=== PATIENT | female | born 1985 | race Two or more races ===

== ENCOUNTER 2017-11-09 18:27 | Inpatient (IN) | payer OTHER ==
[~2017-11-09] VITALS: Ht 157.5 cm; Wt 83.5 kg
--- NOTE | 2017-11-09 18:35 | NUR ---
aaox3, came to er c/o epigastric pain, nausea vomiting and diarrhea x 2 days. RR is even and unlabored with nad noted. skin is warm and dry. Awaiting md for eval.
[2017-11-09 18:56] LABS: APPEARANCE,URINE Clear (CLEAR); BILIRUBIN,URINE Negative (NEGATIVE); BLOOD, URINE Negative Ery/uL (NEGATIVE); COLOR,URINE Yellow (YELLOW); KETONES,URINE Negative (NEGATIVE); LEUKOCYTE ESTERASE ,URINE Negative (NEGATIVE); NITRITE, URINE Negative (NEGATIVE); PH,URINE 7.5 (5.0-8.0); PROTEIN,URINE Negative (NEGATIVE); UGLUCOSE Negative (NEGATIVE); UROBILINOGEN,URINE 0.2 EU/dL (0.2)
[2017-11-09] MEDS ORDERED: ONDANSETRON HCL/PF 4 MG/2 ML VIAL IVP ONE (19:00)
[2017-11-09] MEDS ORDERED: IV NS 0.9% 1,000 ML BAG IV ONE (19:00)
[2017-11-09] MEDS ORDERED: MORPHINE SULFATE INJ 2 MG/ML DISP.SYRIN IV ONE (19:00)
[2017-11-09 19:07] LABS: BASOPHILS # (AUTO) 0.2 /CMM (0.0-0.2); BASOPHILS % (AUTO) 1.5 % (0.0-2.0); EOSINOPHILS % (AUTO) 0.2 % (0.0-6.0); HEMATOCRIT 42 % (33-45); HEMOGLOBIN 14.7 g/dL (11.5-14.8); LYMPHOCYTES # (AUTO) 1.1 /CMM (0.8-4.8); LYMPHOCYTES % (AUTO) 6.7 % (20.0-44.0); MEAN CORPUSCULAR HGB CONC 35 g/dl (31.0-36.0); MEAN CORPUSCULAR VOLUME 92 fL (82-100); MONOCYTES # (AUTO) 0.6 /CMM (0.1-1.30); MONOCYTES % (AUTO) 3.7 % (2.0-12.0); NEUTROPHILS # (AUTO) 14.7 /CMM (1.8-8.9); NEUTROPHILS % (AUTO) 87.9 % (43.0-81.0); PLATELET COUNT (AUTO) 318 /CMM (150-450); RDW COEFFICIENT OF VARIATION 12.1 (11.5-15.0); WHITE BLOOD COUNT (AUTO) 16.6 K/uL (4.3-11.0)
[2017-11-09] MEDS ORDERED: ONDANSETRON HCL/PF 4 MG/2 ML VIAL ONE (19:09)
[2017-11-09] MEDS ORDERED: MORPHINE SULFATE INJ 4 MG/ML DISP.SYRIN ONE (19:10)
--- NOTE | 2017-11-09 19:10 | NUR ---
REPORT GIVEN TO BK MARRUFO FOR REYNA.
--- NOTE | 2017-11-09 19:13 | NUR ---
Patient transported for CT
--- NOTE | 2017-11-09 19:16 | NUR ---
RECEIVED REPORT FROM BK TOUSSAINT FOR REYNA. PT IN CT AT THIS TIME.
[2017-11-09 19:18] LABS: CALCIUM, SERUM 9.4 mg/dL (8.5-10.1); POTASSIUM 3.9 mmol/L (3.5-5.1)
--- NOTE | 2017-11-09 19:18 | NUR ---
PT RETURNED FROM CT.
[2017-11-09 19:24] LABS: ALBUMIN 3.8 g/dL (3.4-5.0); BILIRUBIN,DIRECT 0.2 mg/dL (0.0-0.2); TOTAL PROTEIN, SERUM 8.5 g/dL (6.4-8.2)
[2017-11-09] MEDS ORDERED: PIPERACILLIN /TAZOBACTAM 3.375 G in IV D5W 50 ML IV ONE (20:30)
--- NOTE | 2017-11-09 20:41 | NUR ---
CALLED [facility] FOR PANEL CALL AND KESHA RAJAN WAS PAGED.
--- NOTE | 2017-11-09 20:43 | NUR ---
PAGED DR KERRI BURROUGHS MD ON PHONE WITH HIM
--- NOTE | 2017-11-09 20:51 | NUR ---
CLYDE AT BEDSIDE
--- NOTE | 2017-11-09 20:51 | NUR ---
CALLED [facility] AND REQUESTED A MED SURG BED FOR THIS PT.
--- NOTE | 2017-11-09 20:54 | NUR ---
DR. BONE AT BEDSIDE FOR EVAL
--- NOTE | 2017-11-09 21:00 | NUR ---
ASSIGNED TO MED SURG RM#: [id number] DX: CHOLECYSTITIS ACCEPTING MD: KESHA RAJAN
--- NOTE | 2017-11-09 21:12 | NUR ---
REPORT GIVEN TO BK STANLEY FOR REYNA/ MS BED 110
--- NOTE | 2017-11-09 21:53 | NUR ---
PT TRANSFERRED VIA WC TO MS BED 110
[2017-11-09 21:55] VITALS: BP 118/62
--- NOTE | 2017-11-09 21:55 | NUR ---
RN M/S NOTE RECEIVED PATIENT FROM ER VIA WHEELCHAIR, AOX3, SPEECH CLEAR, C/O N/V/D AND ABDOMINAL PAIN. SKIN IS DRY AND INTACT, AMBULATORY, ON ROOM AIR, NO S/SX OF CARDIAC OR RESPIRATORY DISTRESS NOTED, RAC #20G PATENT FLUSHING WELL, SITE CDI, SAFETY MAINTAINED AT ALL TIMES, BED IN LOW LOCKED POSITION, CALL LIGHT WITHIN REACH, WILL CONTINUE TO MONITOR FOR ANY CHANGES IN CONDITION.
--- NOTE | 2017-11-09 22:53 | NUR ---
SPOKE TO KESHA RAJAN FOR ADMISSION ORDERS.
[2017-11-09] MEDS ORDERED: Potassium Chloride 20 MEQ in IV D5/ 0.9% NACL 1,000 ML IV PRN (23:00)
[2017-11-09] MEDS: ONDANSETRON HCL/PF 4 MG/2 ML VIAL IV PRN (23:02)
[2017-11-09] MEDS: MORPHINE SULFATE INJ 2 MG/ML DISP.SYRIN IV PRN (23:03)
[2017-11-09] MEDS ORDERED: IV PREMIX D5 1/2NS + KCL 1,000 ML IV ONE (23:08)
[2017-11-09] MEDS: Potassium Chloride 20 MEQ in IV D5/0.45 NACL 1,000 ML IV PRN (23:10)
[2017-11-10] MEDS ORDERED: MAGNESIUM HYDROXIDE 30 ML UDC PO PRN (01:30)
[2017-11-10] MEDS ORDERED: MAG HYDROX/AL HYDROX/SIMETH 30 ML UDC PO PRN (01:30)
[2017-11-10] MEDS ORDERED: ZOLPIDEM TARTRATE 5 MG TABLET PO PRN (01:30)
[2017-11-10] MEDS ORDERED: ONDANSETRON HCL/PF 4 MG/2 ML VIAL IVP PRN (01:30)
[2017-11-10] MEDS ORDERED: Z GUARD REMEDY 2 OZ OINT TP PRN (01:30)
[2017-11-10] MEDS: ACETAMINOPHEN 325 MG TABLET PO PRN (01:50)
[2017-11-10] MEDS ORDERED: PIPERACILLIN /TAZOBACTAM 2.25 G VIAL IV ONE (05:11)
[2017-11-10] MEDS: PIPERACILLIN /TAZOBACTAM 4.5 G in IV D5W 50 ML IV SCH ×4 (05:27→23:12)
--- NOTE | 2017-11-10 07:10 | NUR ---
MS RN OPENING NOTES RECEIVED PT IN BED ALERT AND VERBALLY RESPONSIVE, NO SOB, NO C/O PAIN, NO C/O N/V AT THIS TIMEON NPO FOR HIDA PROCEDURE, WITH ONGOING D5 0.45 NACL AT 100 ML/HR ON RAC, INTACT AND PATENT, NO SIGNS OF INFECTION, SAFETY PRECAUTION OBSERVED, CALL LIGHT WITHIN REACH, WILL CONT TO MONITOR
[2017-11-10 08:00] VITALS: BP 109/57
[2017-11-10 08:09] VITALS: BP 109/57
[2017-11-10] MEDS: ONDANSETRON HCL/PF 4 MG/2 ML VIAL IV PRN (12:59)
[2017-11-10] MEDS: MORPHINE SULFATE INJ 2 MG/ML DISP.SYRIN IV PRN ×3 (13:13→20:39)
[2017-11-10] MEDS: Potassium Chloride 20 MEQ in IV D5/0.45 NACL 1,000 ML IV PRN (15:51)
[2017-11-10 16:00] VITALS: BP 103/49
--- NOTE | 2017-11-10 19:20 | NUR ---
RN M/S NOTE RECEIVED PATIENT RESTING COMFORTABLY IN BED, AOX3, SPEECH CLEAR, AMBULATORY, ON ROOM AIR, NO S/SX OF CARDIAC OR RESPIRATORY DISTRESS NOTED, RAC #20G PATENT FLUSHING WELL, SITE CDI, SKIN IS DRY AND INTACT, SAFETY MAINTAINED AT ALL TIMES, BED IN LOW LOCKED POSITION, CALL LIGHT WITHIN REACH, WILL CONTINUE TO MONITOR FOR ANY CHANGES IN CONDITION.
--- NOTE | 2017-11-10 19:30 | NUR ---
RN CLOSING NOTES PT IN STABLE CONDITION, REMAINED AFEBRILE, SAFETY MEASURES OBSERVED AT ALL TIME, ALL NEEDS ATTENDED, ENDORSED TO PM SHIFT FOR REYNA
[2017-11-10 20:00] VITALS: BP 100/70
[2017-11-10 20:01] VITALS: BP 100/70
--- NOTE | 2017-11-10 22:35 | NUR ---
RN M/S NOTE PER DR RAJAN PATIENT OKAY TO GO HOME IF FEELING BETTER, OKAY TO ADVANCE DIET TOLERATED.
[2017-11-11] MEDS: MORPHINE SULFATE INJ 2 MG/ML DISP.SYRIN IV PRN ×2 (02:06→06:03)
[2017-11-11 04:00] VITALS: BP 88/52
[2017-11-11] MEDS: PIPERACILLIN /TAZOBACTAM 4.5 G in IV D5W 50 ML IV SCH ×3 (05:16→17:15)
[2017-11-11] MEDS: Potassium Chloride 20 MEQ in IV D5/0.45 NACL 1,000 ML IV PRN ×2 (05:19→18:26)
[2017-11-11 06:25] LABS: BASOPHILS % (AUTO) 0.5 % (0.0-2.0); HEMATOCRIT 37 % (33-45); HEMOGLOBIN 12.6 g/dL (11.5-14.8); LYMPHOCYTES # (AUTO) 1.2 /CMM (0.8-4.8); LYMPHOCYTES % (AUTO) 21.1 % (20.0-44.0); MEAN CORPUSCULAR HGB CONC 35 g/dl (31.0-36.0); MEAN CORPUSCULAR VOLUME 93 fL (82-100); MONOCYTES # (AUTO) 0.5 /CMM (0.1-1.30); MONOCYTES % (AUTO) 7.6 % (2.0-12.0); NEUTROPHILS # (AUTO) 4.1 /CMM (1.8-8.9); NEUTROPHILS % (AUTO) 68.8 % (43.0-81.0); PLATELET COUNT (AUTO) 264 /CMM (150-450); RDW COEFFICIENT OF VARIATION 12.9 (11.5-15.0); RED BLOOD CELL COUNT(AUTO) 3.96 MIL/uL (4.0-5.2); WHITE BLOOD COUNT (AUTO) 5.9 K/uL (4.3-11.0)
[2017-11-11 06:41] LABS: CALCIUM, SERUM 8.2 mg/dL (8.5-10.1); CREATININE 1.1 mg/dL (0.6-1.3); PHOSPHORUS 2.9 mg/dL (2.5-4.9); POTASSIUM 4.2 mmol/L (3.5-5.1)
--- NOTE | 2017-11-11 07:10 | NUR ---
MS RN NOTES RECEIVED PT IN BED, ALERT, NO SOB NOTED, WITH C/O HEADACHE AND ASKING FOR TYLENOL, WITH ONGOING D5 1/2 NS + KCL 20 MEQ @100 ML/HR INFUSING WELL ON RFA. SAFETY PRECAUTION OBSERVED, CALL LIGHT WITHIN REACH TYLENOL GIVEN, WILL CONT TO MONITOR
[2017-11-11] MEDS: ACETAMINOPHEN 325 MG TABLET PO PRN ×2 (07:49→17:16)
[2017-11-11 08:00] VITALS: BP 93/53
[2017-11-11] MEDS ORDERED: MORPHINE SULFATE INJ 4 MG/ML DISP.SYRIN IV PRN (09:26)
[2017-11-11] MEDS ORDERED: IOHEXOL-300 100 ML VIAL IV ONE ×2 (14:19→14:22)
--- NOTE | 2017-11-11 14:30 | NUR ---
RN NOTES RECEIVED CALL FROM RADIOLOGY, INFORMING THAT RFA IV LINE WAS INFILTRATED, THEY INSERTED NEW IV LINE ON RAC.
--- NOTE | 2017-11-11 15:01 | NUR ---
RN NOTES PT CAME BACK FROM CT PROCEDURE IN STABLE CONDITION, NO C/O PAIN, NO SOB.
[2017-11-11 16:00] VITALS: BP 95/51
--- NOTE | 2017-11-11 17:00 | NUR ---
RN NOTES PT NOTIFIED NURSE THAT SHE HAD LOOSE BM X3 SINCE MORNING, STATES THAT SHE WANTS TO KEEP IT IT MAY HOLD [facility]. EXPLAINED TO HER THE RISKS AND BENEFITS FOR THAT AND INFORMED HER THAT WE HAVE TO COLLECT STOOL SAMPLE FOR CDIFF TESTING. PT AGREED AND VERBALIZED UNDERSTANDING. WILL CONT TO MONITOR
--- NOTE | 2017-11-11 19:30 | NUR ---
RN NOTES PT HAD ANOTHER EPISODE OF LBM, STOOL COLLECTED AND SEND TO LAB FOR TESTING. DR GROVE NOTIFIED WITH NO NEW ORDER AT THIS TIME. PT REMAINED IN STABLE CONDITION, NO ACUTE DISTRESS NOTED WITHIN THE SHIFT. NO C/O ABDOMINAL PAIN THROUGHOUT SHIFT. SAFETY MEASURES OBSERVED AT ALL TIMES, ALL NEEDS ATTENDED. ENDORSED TO PM SHIFT NURSE FOR CONT. OF CARE
[2017-11-11 20:00] VITALS: BP 95/59
--- NOTE | 2017-11-11 21:30 | NUR ---
RN NOTES PATIENT SEEN AND EXAMINED BY DR. MANNING. PATIENT WITH UNREMARKABLE IMAGING. STABLE FOR DISCHARGE. PATIENT REQUESTING TO GO HOME TONIGHT. CALLED AND SPOKE WITH DR. RAJAN, UPDATED WITH THE PATIENT'S CURRENT CONDITION. D/C TO HOME ORDERED. NOTED AND CARRIED OUT. PATIENT MADE AWARE. D/C PAPERS ENDORSED TO PATIENT ACCORDINGLY. D/C INSTRUCTIONS GIVEN, VERBALIZED UNDERSTANDING. PATIENT WITH NO DISTRESS. DENIES ANY PAIN AND DISCOMFORT. WENT HOME VIA PRIVATE CARE WITH . NOTED.
== END 2017-11-11 21:40 | disposition home or self-care (01) ==
LOC: ER 18:30 → MEDSG1 21:01
PROVIDERS: ADMIT Nurse Practitioner Acute Care; ATTEND Nurse Practitioner Acute Care
DX: K80.50 Calculus of bile duct without cholangitis or cholecystitis without obstruction (principal); K76.0 Fatty (change of) liver, not elsewhere classified; E87.1 Hypo-osmolality and hyponatremia; K76.89 Other specified diseases of liver; Z98.51 Tubal ligation status; N20.0 Calculus of kidney; K57.90 Diverticulosis of intestine, part unspecified, without perforation or abscess without bleeding; E66.9 Obesity, unspecified; Z68.33 Body mass index [BMI] 33.0-33.9, adult; D72.829 Elevated white blood cell count, unspecified
CPT/HCPCS: 36415; 74178; 76705-TC; 78226; 80048-TC; 80061-TC; 80076-TC; 81000-TC; 83690-TC; 83735-TC; 84100-TC; 84703-TC; 85025-TC; 87081-TC; A4606; A9537; J2270; J2405; J2543; J3480; J3490; J7030; J7042; J7060; Q9967; Z7610

== ENCOUNTER 2018-07-16 02:12 | Emergency (ER) | payer OTHER ==
[~2018-07-16] VITALS: Ht 157.5 cm; Wt 83.9 kg
[2018-07-16 02:12] VITALS: BP 124/89
[2018-07-16] MEDS ORDERED: IBUPROFEN 600 MG TABLET PO ONE ×2 (02:57→03:00)
== END 2018-07-16 05:44 | disposition home or self-care (01) ==
LOC: ER 02:15
DX: M79.671 Pain in right foot (principal); Z98.51 Tubal ligation status; X50.1XXA Overexertion from prolonged static or awkward postures, initial encounter; Y93.89 Activity, other specified; Y92.89 Other specified places as the place of occurrence of the external cause; Y99.8 Other external cause status
CPT/HCPCS: 73630; 73700; 99284; A4606

== ENCOUNTER 2018-08-26 21:31 | Emergency (ER) | payer OTHER ==
[~2018-08-26] VITALS: Ht 165.1 cm; Wt 68.0 kg
--- NOTE | 2018-08-26 21:35 | NUR ---
PT PRESENTED TO THE ER WITH A C/O ABD PAIN THAT RADIATES TO THE RT FLANK. PT STATED THAT SHE HAS A CYST ON HER OVARY. PT AMBULATED TO ER #3 WITH A STEADY GAIT.
--- NOTE | 2018-08-26 21:54 | NUR ---
BRANCH SALES MANAGER IS AT THE BEDSIDE FOR BLOOD DRAW.
[2018-08-26 22:05] LABS: BASOPHILS # (AUTO) 0.1 /CMM (0.0-0.2); BASOPHILS % (AUTO) 1.1 % (0.0-2.0); EOSINOPHILS % (AUTO) 1.1 % (0.0-6.0); HEMATOCRIT 42 % (33-45); HEMOGLOBIN 14.4 g/dL (11.5-14.8); LYMPHOCYTES # (AUTO) 2.5 /CMM (0.8-4.8); LYMPHOCYTES % (AUTO) 24.8 % (20.0-44.0); MEAN CORPUSCULAR HGB CONC 34 g/dl (31.0-36.0); MEAN CORPUSCULAR VOLUME 94 fL (82-100); MONOCYTES # (AUTO) 0.7 /CMM (0.1-1.30); MONOCYTES % (AUTO) 6.5 % (2.0-12.0); NEUTROPHILS # (AUTO) 6.6 /CMM (1.8-8.9); NEUTROPHILS % (AUTO) 66.5 % (43.0-81.0); PLATELET COUNT (AUTO) 316 /CMM (150-450); RED BLOOD CELL COUNT(AUTO) 4.45 MIL/uL (4.0-5.2); WHITE BLOOD COUNT (AUTO) 9.9 K/uL (4.3-11.0)
[2018-08-26 22:08] LABS: APPEARANCE,URINE CLEAR (CLEAR); BILIRUBIN,URINE NEGATIVE (NEGATIVE); BLOOD, URINE NEGATIVE Ery/uL (NEGATIVE); COLOR,URINE YELLOW (YELLOW); KETONES,URINE NEGATIVE (NEGATIVE); LEUKOCYTE ESTERASE ,URINE NEGATIVE (NEGATIVE); NITRITE, URINE NEGATIVE (NEGATIVE); PROTEIN,URINE NEGATIVE (NEGATIVE); UGLUCOSE NEGATIVE (NEGATIVE); UROBILINOGEN,URINE 0.2 EU/dL (0.2)
[2018-08-26 22:17] LABS: CALCIUM, SERUM 9.5 mg/dL (8.5-10.1); CREATININE 0.9 mg/dL (0.6-1.3); POTASSIUM 3.9 mmol/L (3.5-5.1)
[2018-08-26] MEDS ORDERED: HYDROMORPHONE 1 MG/1 ML DISP.SYRIN ONE (22:21)
[2018-08-26] MEDS ORDERED: ONDANSETRON HCL/PF 4 MG/2 ML VIAL ONE ×2 (22:21→23:14)
[2018-08-26 22:22] LABS: RBC,URINE 0-2 /HPF (0-2)
[2018-08-26 22:22] LABS: ALBUMIN 3.9 g/dL (3.4-5.0); BILIRUBIN,DIRECT 0.1 mg/dL (0.0-0.2); BILIRUBIN,TOTAL 0.3 mg/dL (0.2-1.0); TOTAL PROTEIN, SERUM 8.3 g/dL (6.4-8.2)
[2018-08-26 22:23] LABS: BACTERIA,URINE Few /HPF (None Seen); MUCUS,URINE Few /LPF (None Seen); SQUAMOUS EPITHELIAL CELL,UR Few /HPF (None Seen)
[2018-08-26] MEDS ORDERED: IV NS 0.9% 1,000 ML BAG IV ONE (22:30)
[2018-08-26] MEDS ORDERED: HYDROMORPHONE 1 MG/1 ML DISP.SYRIN IV ONE (22:30)
[2018-08-26] MEDS ORDERED: ONDANSETRON HCL/PF 4 MG/2 ML VIAL IV ONE ×2 (22:30→23:30)
[2018-08-27] MEDS ORDERED: HYDROMORPHONE 1 MG/1 ML DISP.SYRIN ONE (00:26)
[2018-08-27] MEDS ORDERED: HYDROMORPHONE 1 MG/1 ML DISP.SYRIN IV ONE (00:30)
[2018-08-27] MEDS ORDERED: IV NS 0.9% 1,000 ML BAG IV ONE (00:30)
--- NOTE | 2018-08-27 01:02 | NUR ---
US IS AT THE BEDSIDE.
--- NOTE | 2018-08-27 01:23 | NUR ---
PT LEFT FOR CT VIA WC.
[2018-08-27] MEDS ORDERED: KETOROLAC TROMETHAMINE INJ 30 MG/ML VIAL IV ONE ×2 (02:00→06:30)
--- NOTE | 2018-08-27 02:00 | NUR ---
PT DOES NOT WANT PAIN MEDICATION AT THIS TIME. WILL HOLD IT FOR LATER.
--- NOTE | 2018-08-27 02:55 | NUR ---
PT AMBULATED TO THE BATHROOM WITH ASSISTANCE. PT IS C/O FEELING DIZZY AND NAUSEATED. PT VOMITTED X 2 IN THE BATHROOM.
[2018-08-27] MEDS ORDERED: ONDANSETRON HCL/PF 4 MG/2 ML VIAL ONE (02:59)
--- NOTE | 2018-08-27 03:00 | NUR ---
PT DENIES PAIN. PT IS ONLY C/O NAUSEA AND DIZZINESS.
--- NOTE | 2018-08-27 03:00 | NUR ---
PT AMBULATED BACK TO ER #3 WITH A SLOW STEADY GAIT. PT WAS USING THE WALL TO STABILIZE HER WHILE SHE WAS WALKING BACK TO ER #3. PT WAS ASSISTED BACK TO BED AND PLACED ON THE MONITOR. NOTIFIED THAT PT VOMITTED.
[2018-08-27] MEDS ORDERED: ONDANSETRON HCL/PF 4 MG/2 ML VIAL IV ONE (03:30)
--- NOTE | 2018-08-27 04:40 | NUR ---
PT APPEARS TO BE SLEEPING SOUNDLY WITH NO S/S OF PAIN OR DISTRESS. VSS.
--- NOTE | 2018-08-27 05:30 | NUR ---
PT AMBULATED TO THE BATHROOM WITH A STEADY GAIT. VSS.
[2018-08-27] MEDS ORDERED: KETOROLAC TROMETHAMINE INJ 30 MG/ML VIAL ONE (06:17)
--- NOTE | 2018-08-27 06:30 | NUR ---
PT C/O HEADACHE. MD NOTIFIED AND NEW ORDERS GIVEN
--- NOTE | 2018-08-27 07:00 | NUR ---
PT CALLED HER TO PICK HER UP. PT'S WILL BE HERE IN 45 MINS.
--- NOTE | 2018-08-27 07:26 | NUR ---
REPORT GIVEN TO BK CONLEY FOR REYNA.
[2018-08-27 08:31] VITALS: BP 101/74
--- NOTE | 2018-08-27 08:33 | NUR ---
Patient discharged to home in stable condition. Written and verbal after care instructions given. Patient verbalizes understanding of instruction.IV removed. Catheter intact and site benign. Pressure and 4x4 applied to site. No bleeding noted.
== END 2018-08-27 08:32 | disposition home or self-care (01) ==
LOC: ER 21:33
DX: G89.29 Other chronic pain (principal); R10.2 Pelvic and perineal pain; Z98.51 Tubal ligation status
CPT/HCPCS: 36415; 74176; 76856; 80048; 80076; 81001; 83690; 84703; 85025; 96374; 96375; 96376; 99284; A4606; J1170 ×2; J1885; J2405 ×3; J7030 ×2; 81000-TC

== ENCOUNTER 2019-01-10 01:27 | Emergency (ER) | payer OTHER ==
[~2019-01-10] VITALS: Ht 157.5 cm; Wt 82.1 kg
[2019-01-10 01:31] VITALS: BP 132/76
[2019-01-10] MEDS ORDERED: diphenhydrAMINE HCL 25 MG CAPSULE PO ONE (02:00)
[2019-01-10] MEDS ORDERED: SULFAMETH/TRIMETH 800/160 MG 1 UDTAB TABLET PO ONE (02:00)
[2019-01-10] MEDS ORDERED: IBUPROFEN 600 MG TABLET PO ONE ×2 (02:00→02:03)
[2019-01-10] MEDS ORDERED: diphenhydrAMINE HCL 25 MG CAPSULE ONE (02:03)
[2019-01-10] MEDS ORDERED: SULFAMETH/TRIMETH 800/160 MG 1 UDTAB TABLET ONE (02:09)
== END 2019-01-10 02:13 | disposition home or self-care (01) ==
LOC: ER 01:33
DX: S90.862A Insect bite (nonvenomous), left foot, initial encounter (principal); Z98.51 Tubal ligation status; W57.XXXA Bitten or stung by nonvenomous insect and other nonvenomous arthropods, initial encounter; Y93.89 Activity, other specified; Y92.89 Other specified places as the place of occurrence of the external cause; Y99.8 Other external cause status
CPT/HCPCS: 99284; Q0163

== ENCOUNTER 2019-02-14 06:08 | Emergency (ER) | payer OTHER ==
[~2019-02-14] VITALS: Ht 157.5 cm; Wt 54.4 kg
[2019-02-14 06:14] VITALS: BP 133/76
[2019-02-14] MEDS ORDERED: BACITRACIN ZINC OINT PACKET 1 EA PACKET TP ONE (06:30)
== END 2019-02-14 06:26 | disposition home or self-care (01) ==
LOC: ER 06:12
DX: S60.811A Abrasion of right wrist, initial encounter (principal); Z98.890 Other specified postprocedural states; Y04.0XXA Assault by unarmed brawl or fight, initial encounter; Y93.89 Activity, other specified; Y92.89 Other specified places as the place of occurrence of the external cause; Y99.0 Civilian activity done for income or pay

== ENCOUNTER 2019-04-16 04:20 | Emergency (ER) | payer MEDICAID, OTHER ==
[~2019-04-16] VITALS: Ht 162.6 cm; Wt 55.3 kg
--- NOTE | 2019-04-16 04:30 | NUR ---
CHRISTOPHER FROM WORK. TO ER BED 4. AAOX4. NO RESP DISTRESS NOTED. AMBULATORY. C/O DIZZYNESS AND HOT FLASHES. PT REPORTS THAT SHE IS PROGRESSIVELY FEELING HOT THROUHG THE NIGHT. PT REPORTS THAT SHE HAD LIGATION 2 YEARS AGO. PT REPORTS THAT THIS FEELING IS THE FIRST TIME FOR HER. PT IS AFEBRILE 98.3. AWAITING MD FOR ALVAREZ.
[2019-04-16] MEDS ORDERED: LORAZEPAM 1 MG TABLET ONE (04:50)
[2019-04-16] MEDS ORDERED: LORAZEPAM 1 MG TABLET PO ONE (05:00)
[2019-04-16 05:05] LABS: BASOPHILS % (AUTO) 0.2 % (0.0-2.0); EOSINOPHILS % (AUTO) 0.7 % (0.0-6.0); HEMATOCRIT 41 % (33-45); HEMOGLOBIN 13.8 g/dL (11.5-14.8); LYMPHOCYTES # (AUTO) 3.4 /CMM (0.8-4.8); LYMPHOCYTES % (AUTO) 29.3 % (20.0-44.0); MEAN CORPUSCULAR HGB CONC 34 g/dl (31.0-36.0); MEAN CORPUSCULAR VOLUME 94 fL (82-100); MONOCYTES # (AUTO) 0.9 /CMM (0.1-1.30); MONOCYTES % (AUTO) 7.5 % (2.0-12.0); NEUTROPHILS # (AUTO) 7.2 /CMM (1.8-8.9); NEUTROPHILS % (AUTO) 62.3 % (43.0-81.0); PLATELET COUNT (AUTO) 331 /CMM (150-450); RED BLOOD CELL COUNT(AUTO) 4.31 MIL/uL (4.0-5.2); WHITE BLOOD COUNT (AUTO) 11.6 K/uL (4.3-11.0)
[2019-04-16 05:14] LABS: CREATININE 0.9 mg/dL (0.6-1.3); POTASSIUM 3.6 mmol/L (3.5-5.1)
[2019-04-16 05:27] LABS: THYROID STIMULATING HORMONE 8.499 uIU/mL (0.358-3.74)
[2019-04-16 06:28] VITALS: BP 107/68
[2019-04-16] MEDS ORDERED: ONDANSETRON 4 MG TAB.RAPDIS ONE (06:50)
[2019-04-16] MEDS ORDERED: ONDANSETRON 4 MG TAB.RAPDIS SL ONE (07:00)
--- NOTE | 2019-04-16 07:26 | NUR ---
Patient discharged to home in stable condition. Written and verbal after care instructions given. Patient verbalizes understanding of instruction.
== END 2019-04-16 07:28 | disposition home or self-care (01) ==
LOC: ER 04:21
DX: E03.9 Hypothyroidism, unspecified (principal); F41.0 Panic disorder [episodic paroxysmal anxiety]; Z98.890 Other specified postprocedural states
CPT/HCPCS: 36415; 80048; 84443; 84702; 85025; 99283; Q0162

== ENCOUNTER 2019-06-27 01:26 | Emergency (ER) | payer OTHER ==
[~2019-06-27] VITALS: Ht 157.5 cm; Wt 81.6 kg
[2019-06-27 01:30] VITALS: BP 119/82
[2019-06-27] MEDS ORDERED: diphenhydrAMINE HCL 25 MG CAPSULE PO ONE (02:00)
[2019-06-27] MEDS ORDERED: diphenhydrAMINE HCL 25 MG CAPSULE ONE (02:12)
== END 2019-06-27 02:33 | disposition home or self-care (01) ==
LOC: ER 01:28
DX: R21 Rash and other nonspecific skin eruption (principal); Z98.51 Tubal ligation status
CPT/HCPCS: 99282; Q0163

== ENCOUNTER 2020-09-24 01:49 | Emergency (ER) | payer BC, OTHER ==
[~2020-09-24] VITALS: Ht 157.5 cm; Wt 89.8 kg
[2020-09-24] MEDS ORDERED: ACETAMINOPHEN ES 500 MG TABLET ONE (05:33)
--- NOTE | 2020-09-24 05:36 | NUR ---
PT IS MEDICALLY CLEAR FOR D/C. Patient discharged to home in stable condition. Written and verbal after care instructions given. Patient verbalizes understanding of instruction.
--- NOTE | 2020-09-24 05:39 | NUR ---
Zully lynn in [facility] - 09/24/20 at 0539 by [email or web address] Patient discharged to home in stable condition. Written and verbal after care instructions given. Patient verbalizes understanding of instruction.
[2020-09-24 05:40] VITALS: BP 124/73
[2020-09-24] MEDS ORDERED: ACETAMINOPHEN ES 500 MG TABLET PO ONE (06:00)
== END 2020-09-24 05:40 | disposition home or self-care (01) ==
LOC: ER 01:52
DX: R07.89 Other chest pain (principal); F41.9 Anxiety disorder, unspecified; Z98.890 Other specified postprocedural states
CPT/HCPCS: 71045-TC